=== PATIENT | male | born 1960 | race Two or more races ===

== ENCOUNTER → 2016-08-31 | Outpatient (CLI) | payer OTHER ==
[~2016-08-31] MED LIST: FLEXERIL10 MG PO; NAPROSYN500 MG PO
--- NOTE | ~2016-08-31 | CR181 ---
[facility] A Service of [facility] RADIOLOGY TEXT RESULTS PATIENT: ALEJA LEY LOCATION: [facility] : 60 UNIT #: [id number] AGE: [address]: Sabrina Newman MD SEX: M ORDER DR: [id number] [facility] [address] [place], [place] [address] [id number] O MR#: [id number] Acc #: [id number] NAME: ALEJA LEY : 1960 SEX: M STUDY DATE/TIME: 08/31/2016 16:55 UNIT: [facility] ROOM: STUDY DESCRIPTION: CR Lumbar Spine 2 or 3 Views Attending Physician: Sabrina Newman M.D. Referring Physician: Sabrina Newman M.D. Ordering Physician: Sabrina Newman M.D. Primary Care Physician: Sabrina Newman M.D. MEDICAL IMAGING REPORT This report is preliminary unless electronic signature is present EXAM Lumbar spine series. HISTORY Low back pain radiating to the left leg with left leg numbness since falling 5 years ago. Pain has worsened over the past year. TECHNIQUE Three views of the lumbar spine were obtained and compared with 01/23/2012. FINDINGS There is a small anterior osteophyte at T11-T12. The T12-L1, L1-L2 and L2-L3 levels are normal. At L3-4, reactive endplate changes are seen on either side of the disc, although the disc space height is preserved anteriorly. There is mild disc space narrowing posteriorly and there is a small anterior osteophyte. Lateral osteophytes are seen bilaterally, as well. At L4-5, there is disc space collapse with reactive endplate changes. Large osteophytes and a grade 1 spondylolisthesis. This is borderline grade 2. The degree of spondylolisthesis is unchanged from the previous exam. At L5-S1, there is moderate disc space narrowing with moderate osteophytes. Pars defects are seen bilaterally at L4. IMPRESSION 1. Bilateral spondylolysis with a grade 1 to borderline grade 2 spondylolisthesis across L4-5. The degree of spondylolisthesis is unchanged from the previous exam. Disc space narrowing is slightly worse. 2. Moderate degenerative change at L3-4. 3. Milder degenerative changes at the other lumbar levels. Dictated by... [facility] A Service of [facility] RADIOLOGY TEXT RESULTS PATIENT: ALEJA LEY [facility] [id number] : 60 UNIT #: [id number] AGE: [address]: Sabrina Newman MD SEX: M ORDER DR: Josafat Song M.D. THIS IS AN ELECTRONICALLY VERIFIED REPORT Josafat Song M.D. at 09/01/2016 4:54 PM DREA/patsy TD: 09/01/2016 16:29 JOB #: [id number] MEDICAL IMAGING REPORT Page 1 of 1 COPY
== END | disposition home or self-care (01) ==
LOC: CRAD 16:35
DX: M54.5 Low back pain (principal); M47.896 Other spondylosis, lumbar region; M43.16 Spondylolisthesis, lumbar region; M51.86 Other intervertebral disc disorders, lumbar region
CPT/HCPCS: 72100